=== PATIENT | female | born 1975 | race Asian ===

== ENCOUNTER 2017-12-13 14:36 | Emergency (ER) | payer OTHER ==
[~2017-12-13] VITALS: Ht 167.6 cm; Wt 74.8 kg
[2017-12-13 15:03] VITALS: BP 103/73
[2017-12-13] MEDS ORDERED: Tetanus/Diptheria/Pertussis Vaccine 0.5ml Syr IM ONE (15:15)
[2017-12-13] MEDS ORDERED: Augmentin 875mg Tab ORAL ONE (15:15)
[2017-12-13] MEDS ORDERED: Bacitracin Oint UD TOPIC ONE (15:15)
--- NOTE | 2017-12-13 15:19 | Emergency Room Report ---
History of Present Illness General Chief Complaint: Animal Bite Source: Patient Present Illness HPI 42-year-old female presents emergency department complaining of 6 out of 10 in severity pain to the right calf with open wound times one hour. 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 Patient denies taking blood thinning medications she denies numbness. Patient states bleeding has subsided at this time. Patient is not up-to-date with tetanus. Denies loss of gross motor movements of the extremity. Allergies: Coded Allergies: No Known Allergies (Unverified , 12/13/17) Patient History Past Medical History: see triage record Past Surgical History: none Pertinent Family History: none Last Menstrual Period: 12/02/17 Now: No Reviewed Nursing Documentation: PMH: Agreed; PSxH: Agreed Nursing Documentation-PMH Past Medical History: No Stated History Hx Seizures: Yes Review of Systems All Other Systems: negative except mentioned in HPI Physical Exam Vital Signs Date Time Temp Pulse Resp B/P (MAP) Pulse Ox O2 Delivery O2 Flow Rate FiO2 12/13/17 14:56 97.8 60 16 103/73 95 Room Air 97.9 Sp02 EP Interpretation: reviewed, normal General Appearance: no apparent distress, alert, GCS 15, non-toxic Head: normocephalic, atraumatic ENT: hearing grossly normal, normal voice Neck: full range of motion Respiratory: lungs clear, normal breath sounds, speaking full sentences Cardiovascular #1: regular rate, rhythm, normal capillary refill Musculoskeletal: back normal, gait/station normal, normal range of motion, non- tender - no bony ttp, tenderness to superficial soft tissues only. Neurologic: alert, oriented x3, responsive, motor strength/tone normal, sensory intact, normal gait, speech normal, grossly normal Psychiatric: judgement/insight normal Skin: normal color, no rash, warm/dry, well hydrated, other - dog bite, no infection at this time, bleeding controlled 1cm in size on the right lateral calf. Medical Decision Making PA Attestation Dr. Reid is my supervising Physician whom patient management has been discussed with. Diagnostic Impression: Primary Impression: Dog bite of calf Qualified Codes: S81.851A - Open bite, right lower leg, initial encounter; W54.0XXA - Bitten by dog, initial encounter ER Course 42-year-old female presents emergency department complaining of 6 out of 10 in severity pain to the right calf with open wound times one hour. 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 Patient denies taking blood thinning medications she denies numbness. Patient states bleeding has subsided at this time. Patient is not up-to-date with tetanus. Denies loss of gross motor movements of the extremity. Ddx considered but are not limited to Cellulitis, rabies, fracture, neurovascular compromise of extremity. Vital signs: are WNL, pt. is afebrile H&PE are most consistent with dog bite, no infection at this time, bleeding controlled 1cm in size on the right lateral calf. ORDERS: none required at this time, the diagnosis is clinical ED INTERVENTIONS: Tetanus vaccination is administered. DISCHARGE: At this time pt. is stable for d/c to home. Will provide printed patient care instructions, and any necessary prescriptions. Care plan and follow up instructions have been discussed with the patient prior to discharge. * Augmentin TID x 7 days. Last Vital Signs Date Time Temp Pulse Resp B/P (MAP) Pulse Ox O2 Delivery O2 Flow Rate FiO2 12/13/17 15:03 97.9 80 16 103/73 95 Room Air 97.9 Disposition: HOME, SELF-CARE Condition: Stable Scripts Bacitracin/Polymyxin B Sulfate (BACITRACIN-POLYMYXIN OINTMENT) 28.35 Gm Oint...g. 1 APPLIC TP BID, #28.3 GM Prov: Jammie Solitario 12/13/17 Acetaminophen* (TYLENOL EXTRA STRENGTH*) 500 Mg Tablet 500 MG ORAL Q6H, #20 TAB 0 Refills Prov: Jammie Solitario 12/13/17 Amoxicillin/Potassium Clav 875-125* (AUGMENTIN 875-125 TABLET*) 1 Each Tablet 1 TAB ORAL TWICE A DAY for 7 Days, #14 TAB Prov: Jammie Solitario 12/13/17 Departure Forms: Return to Work Return to Work Date: Dec 15, 2017 Work Restrictions: None Return to Full Activity: Dec 15, 2017 Patient Instructions: Animal Bite Additional Instructions: Take medications as directed. Follow up with a Primary Care Provider in 3-5 days, even if your symptoms have resolved. --Please review list of primary care clinics, if you do not already have a primary care provider Return sooner to ED if new symptoms occur, or current symptoms become worse. - Please note that this Emergency Department Report was dictated using convoy therapeuticscomfort station attendant technology software, occasionally this can lead to erroneous entry secondary to interpretation by the dictation equipment. Jammie Solitario Dec 13, 2017 15:19
[2017-12-13] MEDS ORDERED: BACITRACIN-P28.35 GM TP (15:39)
[2017-12-13] MEDS ORDERED: AUGMENTIN 875-1 EAC1 ORAL (15:39)
[2017-12-13] MEDS ORDERED: TYLENOL EXTRA500 MG ORAL (15:39)
[2017-12-13 16:01] VITALS: BP 103/73
== END 2017-12-13 16:00 | disposition home or self-care (01) ==
LOC: EMR 15:30
DX: S81.851A Open bite, right lower leg, initial encounter (principal); W54.0XXA Bitten by dog, initial encounter; Z23 Encounter for immunization; Y92.59 Other trade areas as the place of occurrence of the external cause; Y99.0 Civilian activity done for income or pay
CPT/HCPCS: 90471; 90715; 99284

== ENCOUNTER 2017-12-16 18:15 | Emergency (ER) | payer OTHER ==
[~2017-12-16] VITALS: Ht 167.6 cm; Wt 74.8 kg
[~2017-12-16 18:15] MED LIST: AUGMENTIN 875-1 EAC1 ORAL; BACITRACIN-P28.35 GM TP; TYLENOL EXTRA500 MG ORAL
[2017-12-16 18:25] VITALS: BP 93/55
--- NOTE | 2017-12-16 19:07 | Emergency Room Report ---
History of Present Illness General Chief Complaint: Wound Recheck/Suture Removal Source: Patient Present Illness HPI 42-year-old female presents to the emergency department for wound follow-up/ recheck in addition to requests for extended works no due to tenderness at tetanus injection site. Patient states that she has no pain currently at the site of the dog bite. Patient does rate a 4 out of 10 in severity pain and tenderness to the right deltoid. Patient reports pain is exacerbated upon palpation and movement of the right arm. Patient states that she has been icing and resting her arm. Denies bleeding from this of the dog bite. She denies fevers or chills. Denies paresthesias, weakness or loss of gross motor movements of either the affected extremities. Pt. reports she has not followed up with a PCP. 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 Allergies: Coded Allergies: No Known Allergies (Unverified , 12/13/17) Patient History Past Medical History: see triage record Past Surgical History: none Pertinent Family History: none Last Menstrual Period: 12/05/17 Immunizations: UTD Reviewed Nursing Documentation: PMH: Agreed; PSxH: Agreed Nursing Documentation-PMH Past Medical History: No Stated History Hx Seizures: Yes Review of Systems All Other Systems: negative except mentioned in HPI Physical Exam Vital Signs Date Time Temp Pulse Resp B/P (MAP) Pulse Ox O2 Delivery O2 Flow Rate FiO2 12/16/17 18:18 98.2 72 18 93/55 98 Room Air 98.2 Sp02 EP Interpretation: reviewed, normal General Appearance: no apparent distress, alert, GCS 15, non-toxic Head: normocephalic, atraumatic ENT: hearing grossly normal, normal voice Neck: full range of motion Respiratory: lungs clear, normal breath sounds, speaking full sentences Cardiovascular #1: regular rate, rhythm Musculoskeletal: back normal, gait/station normal, normal range of motion, tender - TTP to the right deltoid. Neurologic: alert, oriented x3, responsive, motor strength/tone normal, sensory intact, normal gait, speech normal, grossly normal Psychiatric: judgement/insight normal Skin: no rash, warm/dry, well hydrated, wd healing/no infection noted, other - 1cm healing dog bite of the right lateral thigh, bruise is also improving, no evidence of infection of the dog bite or the tdap injection site. Medical Decision Making PA Attestation Dr. Valentine is my supervising Physician whom patient management has been discussed with. Diagnostic Impression: Primary Impression: Pain at injection site Qualified Codes: T80.89XA - Other complications following infusion, transfusion and therapeutic injection, initial encounter; R52 - Pain, unspecified Additional Impression: Encounter for wound re-check ER Course 42-year-old female presents to the emergency department for wound follow-up/ recheck in addition to requests for extended works no due to tenderness at tetanus injection site. Patient states that she has no pain currently at the site of the dog bite. Patient does rate a 4 out of 10 in severity pain and tenderness to the right deltoid. Patient reports pain is exacerbated upon palpation and movement of the right arm. Patient states that she has been icing and resting her arm. Denies bleeding from this of the dog bite. She denies fevers or chills. Denies paresthesias, weakness or loss of gross motor movements of either the affected extremities. Pt. reports she has not followed up with a PCP. 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 Ddx considered but are not limited to injection site infection, tendon injury, cellulitis,dehiscence, delayed healing just to name a few. Vital signs: are WNL, pt. is afebrile H&PE are most consistent with: 1cm healing dog bite of the right lateral thigh , bruise is also improving, no evidence of infection of the dog bite or the tdap injection site. ORDERS: none required at this time, the diagnosis is clinical ED INTERVENTIONS: - none required at this time. DISCHARGE: At this time pt. is stable for d/c to home. Will provide printed patient care instructions, and any necessary prescriptions. Care plan and follow up instructions have been discussed with the patient prior to discharge. Last Vital Signs Date Time Temp Pulse Resp B/P (MAP) Pulse Ox O2 Delivery O2 Flow Rate FiO2 12/16/17 18:25 98.2 72 18 93/55 98 Room Air 98.2 Disposition: HOME, SELF-CARE Condition: Stable Departure Forms: Return to Work Return to Work Date: Dec 16, 2017 Work Restrictions: None Other Restrictions: Return to work on 12/18. unless primary care doctor recommends otherwise. Return to Full Activity: Dec 18, 2017 Patient Instructions: VIS, Tetanus, Diphtheria, and Pertussis (Tdap) - CDC, Wound Check Additional Instructions: Take medications as directed. Follow up with a Primary Care Provider in 3 days, even if your symptoms have resolved. --Please review list of primary care clinics, if you do not already have a primary care provider Return sooner to ED if new symptoms occur, or current symptoms become worse. - Please note that this Emergency Department Report was dictated using [employer] control manager technology software, occasionally this can lead to erroneous entry secondary to interpretation by the dictation equipment. Jammie Solitario Dec 16, 2017 19:07
[2017-12-16 19:29] VITALS: BP 95/55
== END 2017-12-16 21:37 | disposition home or self-care (01) ==
LOC: EMR 19:30
DX: M79.621 Pain in right upper arm (principal); Z48.01 Encounter for change or removal of surgical wound dressing
CPT/HCPCS: 99282